=== PATIENT | male | born 1990 | race Caucasian/White ===

== ENCOUNTER 2016-10-10 17:36 | Emergency (ER) | payer SELFPAY ==
[~2016-10-10] VITALS: Ht 177.8 cm; Wt 95.0 kg
[2016-10-10 18:10] VITALS: Ht 177.8 cm; Wt 95.0 kg
== END 2016-10-10 21:45 | disposition left against medical advice (07) ==
LOC: E/R 17:36 → EDBD 17:36 → E/R 21:45
DX: Z53.21 Procedure and treatment not carried out due to patient leaving prior to being seen by health care provider (principal)